=== PATIENT | male | born 1975 | race African-American/Black ===

== ENCOUNTER 2016-10-24 13:34 | Emergency (ER) | payer MEDICAID ==
[~2016-10-24] VITALS: Ht 182.9 cm; Wt 118.0 kg
[~2016-10-24 13:34] MED LIST: LISI40TA4 PO; LORA10TA7 PO; METF500T4 PO
[2016-10-24 13:49] VITALS: BP 174/102
== END 2016-10-24 15:02 | disposition home or self-care (01) ==
LOC: ER 13:35
DX: I10 Essential (primary) hypertension (principal); R51 Headache; E11.9 Type 2 diabetes mellitus without complications
CPT/HCPCS: 99283